=== PATIENT | female | born 2005 | race Caucasian/White ===

== ENCOUNTER 2024-04-22 13:05 | Outpatient (OUT) | payer BC, SELFPAY ==
[2024-04-22 13:35] LABS: Basophils Absolute Auto 0.1 10^3/uL (0.0-0.1); Basophils Percent Auto 0.7 % (0.2-2.0); Eosinophils Absolute Auto 0.4 10^3/uL (0.0-0.7); Eosinophils Percent Auto 4.3 % (0.9-7.0); Hematocrit 39.7 % (36.0-48.0); Hemoglobin 12.7 g/dL (12.0-16.0); Immature Granulocytes Abs Auto 0.03 10^3/uL (0.00-0.03); Immature Granulocytes Pct Auto 0.3 % (0.0-0.5); Lymphocytes Absolute Auto 2.7 10^3/uL (1.2-3.8); Lymphocytes Percent Auto 27.9 % (20.5-60.0); Mean Corpuscular Hemoglobin 26.3 pg (26.7-34.0); Mean Corpuscular Volume 82.2 fL (81.0-99.0); Mean Platelet Volume 9.5 fL (9.5-13.5); Monocytes Absolute Auto 0.7 10^3/uL (0.3-0.8); Monocytes Percent Auto 7.7 % (1.7-12.0); Neutrophils Absolute Auto 5.7 10^3/uL (1.4-6.5); Neutrophils Percent Auto 59.1 % (43.0-75.0); Platelet Count 411 10^3/uL (150-450); Red Blood Count 4.83 10^6/uL (4.20-5.40); Red Cell Distribution Width 14.1 % (11.0-15.0); White Blood Count 9.6 10^3/uL (4.0-11.0)
[2024-04-22 14:27] LABS: Internal Control Within Normal Limits; Mono Screen NEGATIVE (NEGATIVE); Percent Iron Saturation 15.7 %
[2024-04-22 14:33] LABS: Alanine Aminotransferase 19 U/L (14-59); Albumin Globulin Ratio 0.9; Albumin Level 3.6 g/dL (3.4-5.0); Alkaline Phosphatase 101 U/L (46-116); Anion Gap 10.4; Aspartate Amino Transferase 14 U/L (15-37); BUN Creatinine Ratio 14.1; Bilirubin Total 0.5 mg/dL (0.2-1.0); Calcium 8.9 mg/dL (8.5-10.1); Carbon Dioxide 27.6 mmol/L (21.0-32.0); Chloride 105 mmol/L (98-107); Estimated GFR (African America >60 (>=60 mL/min/1.73m^2); Estimated GFR (Non-African Ame >60 (>=60 mL/min/1.73m^2); Globulin 3.8 g/dL; Glucose 89 mg/dL (74-106); Sodium 139 mmol/L (136-145); Thyroid Stimulating Hormone 1.019 uIU/mL (0.358-3.740); Total Protein 7.4 g/dL (6.4-8.2)
[2024-04-22 14:46] LABS: Free T4 1.03 ng/dL (0.76-1.46)
[2024-04-23 04:07] LABS: Transferrin 314 mg/dL (192-364); Vitamin B12 509 pg/mL (232-1245)
[2024-04-23 15:08] LABS: Thyroglobulin Antibody <1.0 IU/mL (0.0-0.9); Thyroid Peroxidase (TPO) Ab 15 IU/mL (0-34)
== END 2024-04-22 13:06 | disposition home or self-care (01) ==
LOC: LAB 13:11
PROVIDERS: PCP Nurse Practitioner; Visit Provider Nurse Practitioner
DX: R53.83 Other fatigue (principal)
CPT/HCPCS: 36415; 80053; 82607; 82728; 83540; 83550; 84439; 84443; 84466; 85025; 86308; 86376; 86800